=== PATIENT | male | born 1945 | race Caucasian/White ===

== ENCOUNTER 2017-03-18 10:14 | Inpatient (IN) ==
[2017-03-18 10:45] LABS: MANUAL DIFF NEEDED? NO
[2017-03-18 10:50] LABS: BE 3.3 mmoll (-3.0-3.0); BLOOD TYPE ARTERIAL; DRAW SITE R RADIAL; O2(CT) 18.7 mL/dL (15.0-23.0); PCO2(98.6) 37 mmHg (35-45); PO2(98.6) 51 mmHg (60-100); SAMPLE BLOOD; SAO2 91.9 % (95.0-100.0); THB 14.9 g/dL (11.5-17.4); pH(98.6) 7.47 (7.35-7.45)
[2017-03-18 10:51] LABS: BASO% 0.2 % (0.0-0.8); EOS# 0.07 X1000 (0.0-0.7); EOS% 0.6 % (0.0-10.0); HEMATOCRIT 42.5 % (42.0-52.0); HEMOGLOBIN 14.2 g/dL (14.0-18.0); IMM GRAN# 0.03 X1000 (0.0-0.04); IMM GRAN% 0.2 % (0.0-0.5); LYMPH# 0.94 X1000 (1.2-3.4); LYMPH% 7.4 % (20.5-51.1); MCH 30.5 PG (27-31); MCHC 33.4 g/dL (33-37); MCV 91.2 FL (81-99); MONO# 1.39 X1000 (0.11-0.59); MPV 10.1 FL (7.4-10.4); NEUT% 80.6 % (42.2-75.2); PLT 265 X1000 (130-400); RBC 4.66 XMIL (4.7-6.1)
[2017-03-18] MEDS ORDERED: NS 1,000 ML IV ONE (10:56)
[2017-03-18] MEDS ORDERED: TYLENOL PO ONE (10:56)
[2017-03-18 11:00] LABS: ALLEN TEST YES; MODALITY ROOM AIR
[2017-03-18 11:07] LABS: AGAP 15; ALBUMIN 3.6 g/dL (3.5-5.0); ALKALINE PHOSPHATASE 94 U/L (32-122); BUN 12 mg/dL (8-22); CALCIUM 9.4 mg/dL (8.8-10.2); CHLORIDE 94 mmol/L (98-107); COSMO 269; GOT 51 U/L (10-34); GPT 50 U/L (10-44); POTASSIUM 4.1 mmol/L (3.5-5.1); SODIUM 131 mmol/L (136-145); TCO2 22 mmol/L (25-35); TOTAL PROTEIN 7.1 g/dL (6.3-8.3)
[2017-03-18] MEDS ORDERED: ZITHROMAX 500 MG/NS 500 MG/250 ML IVPB IV ONE (11:12)
[2017-03-18] MEDS ORDERED: ROCEPHIN 1 GM/NS 1 GM/50 ML IVPB IV ONE (11:12)
[2017-03-18] MEDS ORDERED: DUONEB (A & A) INH ONE (11:14)
--- NOTE | 2017-03-18 11:18 | PROVIDER DOCUMENTATION ---
HPI-General Adult - General Chief Complaint: Cough Stated Complaint: CONGESTION/CHEST PAIN Time Seen by Provider: 03/18/17 10:55 Source: patient Allergies/Adverse Reactions: Patient Allergies Allergy/AdvReac Type Severity Reaction Status Date / Time No Known Allergies Allergy Verified 02/25/17 20:11 Home Medications: Home Medication List Medication Instructions Recorded Confirmed Last Taken Type Diltiazem [Cardizem] 60 mg PO BID 02/06/14 02/25/17 02/05/14 History Metoprolol [Lopressor] 50 mg PO DAILY 02/06/14 02/25/17 02/06/14 History Tamsulosin HCl [Flomax] 0.4 mg PO DAILY 02/06/14 02/25/17 02/05/14 History Butalb/Acetaminophen/Caffeine 1 each PO Q8-12H PRN PRN #20 02/25/17 Unknown Rx [Fioricet 50-300-40 mg Capsule] capsule Finasteride 5 mg PO DAILY 02/25/17 02/25/17 Unknown History Umeclidinium/Vilanterol [Anoro 1 puff INH RTDAILY 02/25/17 02/25/17 Unknown History Ellipta 62.5-25 Mcg INH] - History of Present Illness -Gen Adult Nature of Presenting Problems: Pt. is 71 yom that presents with c/o cough for two weeks. Pt. reports that over the last couple days he has developed a fever. Pt. thinks he has bronchitis. Pt. states he just can't seem to catch his breath. Location of Pain/Injury: reports: none. denies: head, face, mouth, neck, chest , upper extremity, hand(s), abdomen, back, pelvis, genitalia, lower extremity, feet, upper body, lower body, generalized Pain Radiation: reports: no radiation Quality of Pain: reports: none. denies: aching, burning, cramping, dull, fullness, indigestion, pressure, sharp, stabbing, tearing, throbbing, tightness Severity: denies: mild, moderate, severe Onset/Duration: reports: gradual, other (Two weeks) Timing: reports: still present, constant, changing over time, getting worse. denies: improving, gone now, resolved prior to arrival, intermittent Context/Activities at Onset: reports: none. denies: recent emotional stress, recent physical stress, recent trauma history, possible bad food, cold exposure , out of country travel Modifying Factors: improves with: nothing Associated Symptoms: reports: cough, fever/chills, malaise, shortness of breath , weakness. denies: anxiety, arm pain, back/neck pain, chest pain, constipation , diaphoresis, diarrhea, dizziness, EENT symptoms, fatigue, genitourinary problems, headaches, heartburn, joint pain, loss of appetite, muscle aches, sinus congestion/drainage, nausea, rash, seizure, sensory/motor loss, pain with inspiration, swelling/mass in abdomen, syncope, vomiting, trouble walking Similar Symptoms Previously?: Yes Recently seen or treated by another doctor?: No Review of Systems - Adult - REVIEW OF SYSTEMS - ADULT Constitutional: reports: see HPI, fever. denies: chills, fatique Eyes: reports: see HPI. denies: discharge, decreased vision, double vision Ears, Nose, Mouth & Throat: reports: see HPI. denies: ear pain, hearing loss, sinus problem, nose pain, mouth/dental pain, throat pain, throat swelling Cardiovascular: reports: see HPI. denies: irregular heart rate, palpitations, syncope Respiratory: reports: see HPI, cough, dyspnea on exertion, shortness of breath. denies: hemoptysis, pleurisy, wheezing Gastrointestinal: reports: see HPI, abdominal pain. denies: diarrhea, nausea, vomiting Genitourinary: reports: see HPI. denies: dysuria, hematuria, incontinence, urgency Musculoskeletal: reports: see HPI. denies: back pain, joint pain, muscle aches , neck pain Integumentary: reports: see HPI. denies: hives, itching, rash, skin thickening Neurological: reports: see HPI. denies: ataxia, headache/migraines, numbness, seizure, tremors Psychiatric: reports: see HPI. denies: anxiety, depression, emotional problems , insomnia, panic attacks, suicidal thoughts Past History - Adult - PAST MEDICAL HISTORY-ADULT Review of Records: reports: Old Records Reviewed, Nursing Assessment Review, Medications Reviewed, Social history reviewed & non-contributory. Major Childhood Illnesses: reports: denies history Cardiovascular: reports: denies history Respiratory: reports: COPD Gastrointestinal: reports: denies history Obstetrical/Gynecological: reports: denies history Genitourinary: reports: denies history Musculoskeletal: reports: denies history Neurological: reports: denies history Psychiatric: reports: denies history Endocrine/Immune: reports: denies history Other Conditions: reports: denies history - IMMUNIZATION STATUS Childhood Immunizations: See Nurse Assessment Flu Vaccine: See Nurse Assessment - FAMILY HISTORY Family History: reviewed, not pertinent - SOCIAL HISTORY Smoking: quit greater than 1 year Physical Exam-General - PHYSICAL EXAM-ADULT Initial Vital Signs Reviewed: Yes - CONSTITUTIONAL General Appearance: alert, moderate distress. negative: obese, anxious, lethargic, slow to respond, obtunded, combative - EYES Eyes: PERRL/EOMI, pink conjunctivae. negative: conjuctival exudate, scleral icterus, subconjunctival hemorrhage - HEAD, EARS, NOSE, MOUTH & THROAT HENMT: normocephalic/atraumatic, moist mucous membranes. negative: angioedema, frontal tenderness, maxillary tenderness - NECK Neck: non-tender, full range of motion, supple, normal inspection. negative: lymphadenopathy, trachial deviation, thyromegaly - RESPIRATORY Respiratory: decreased breath sounds, rhonchi (bilaterally), increased rate. negative: crackles, rales, stridor, wheezing, pain on inspiration - CARDIOVASCULAR Cardiovascular: regular rate, rhythm, no edema, no JVD, no murmur, tachycardia. negative: extra beats, friction rub, irregularly irregular - GASTROINTESTINAL (ABDOMEN) Abdominal Exam: normal bowel sounds, non tender, soft. negative: distended, guarding, rigid, rebound, tenderness, hernia, mass - LYMPHATIC Lymphatic: no adenopathy. negative: axilla node tender, cervical node tenderness - MUSCULOSKELETAL Back Exam: normal inspection, no CVA tenderness, no vertebral tenderness. negative: ecchymosis, swelling, vertebral tenderness Extremity: normal range of motion, non-tender, normal gait, normal inspection. negative: deformity, erythema, inflammation, swelling, tenderness Peripheral Pulses: radial (R): 2+, radial (L): 2+ - SKIN Integumentary: normal turgor, warm/dry, pallor. negative: cyanosis, diaphoresis , ecchymosis, erythema, jaundice, mottled, petechiae, purpura, rash, swelling, tenderness - NEUROLOGIC Neurologic: grossly normal, no motor/sensory deficits. negative: aphasia, facial droop, focal weakness, motor weakness, sensory deficit - PSYCHIATRIC Psych/Mental Status: normal mood/affect, normal thought content, normal thought process, oriented x 3. negative: anxious, paranoid, tearful Progress - PLAN OF CARE/RESULTS Progress/Plan/Lab Results: Vital Signs - 8 hr 03/18/17 10:17 Temperature 100.4 F H Pulse Rate 115 H Respiratory Rate 28 H Blood Pressure 136/74 O2 Sat by Pulse Oximetry 91 L Laboratory Results - last 24 hr 03/18/17 03/18/17 03/18/17 10:29 10:29 10:29 WBC 12.66 H RBC 4.66 L Hgb 14.2 Hct 42.5 MCV 91.2 MCH 30.5 MCHC 33.4 RDW Std Deviation 12.4 Plt Count 265 MPV 10.1 Immature Gran % (Auto) 0.2 Neut % (Auto) 80.6 H Lymph % (Auto) 7.4 L [place] % (Auto) 11.0 H Eos % (Auto) 0.6 Baso % (Auto) 0.2 Immature Gran # (Auto) 0.03 Neut # (Auto) 10.21 H Lymph # (Auto) 0.94 L [place] # (Auto) 1.39 H Eos # (Auto) 0.07 Baso # (Auto) 0.02 Specimen Type Sample Site pH pCO2 pO2 HCO3 Base Excess Oxyhemoglobin ABG O2 Sat (Calculated) ABG O2 Saturation ABG Carboxyhemoglobin ABG Methemoglobin Marito Test A-a O2 Difference Total Hemoglobin Lactate Blood Gas Modality FiO2 % Sodium 131 L Potassium 4.1 Chloride 94 L Carbon Dioxide 22 L Anion Gap 15 BUN 12 Creatinine 0.7 Estimated GFR/1.73 m2 > 60 BUN/Creatinine Ratio 17 Glucose 213 H Calculated Osmolality 269 Calcium 9.4 Total Bilirubin 0.50 AST 51 H ALT 50 H Alkaline Phosphatase 94 Total Protein 7.1 Albumin 3.6 Globulin 4.0 Albumin/Globulin Ratio 1.0 Plasma Lactate 1.5 03/18/17 10:30 WBC RBC Hgb Hct MCV MCH MCHC RDW Std Deviation Plt Count MPV Immature Gran % (Auto) Neut % (Auto) Lymph % (Auto) [place] % (Auto) Eos % (Auto) Baso % (Auto) Immature Gran # (Auto) Neut # (Auto) Lymph # (Auto) [place] # (Auto) Eos # (Auto) Baso # (Auto) Specimen Type ARTERIAL Sample Site R RADIAL pH 7.47 H pCO2 37 pO2 51 L HCO3 27.3 H Base Excess 3.3 H Oxyhemoglobin 89.3 L* ABG O2 Sat (Calculated) 18.7 ABG O2 Saturation 91.9 L ABG Carboxyhemoglobin 1.90 ABG Methemoglobin 1.0 Marito Test YES A-a O2 Difference 52.0 Total Hemoglobin 14.9 Lactate 1.00 Blood Gas Modality ROOM AIR FiO2 % 21.0 Sodium Potassium Chloride Carbon Dioxide Anion Gap BUN Creatinine Estimated GFR/1.73 m2 BUN/Creatinine Ratio Glucose Calculated Osmolality Calcium Total Bilirubin AST ALT Alkaline Phosphatase Total Protein Albumin Globulin Albumin/Globulin Ratio Plasma Lactate Orders Category Date Time Status Saline Loc NOW Care 03/18/17 10:21 Active CHEST-2 VIEWS [RAD] Stat Exams 03/18/17 10:21 Ordered ABG [RESP] Routine Lab 03/18/17 10:30 Completed BLOOD CULTURE [BLDCUL] Stat Lab 03/18/17 10:21 Ordered CBC WITH DIFF [HEME] Stat Lab 03/18/17 10:29 Completed COMPREHENSIVE METABOLIC PANEL [CHEM] Stat Lab 03/18/17 10:29 Completed LACTATE, PLASMA [CHEM] Stat Lab 03/18/17 10:[address] [URINALYSIS] Stat Lab 03/18/17 10:55 Ordered 0.9% Sodium Chloride Inj [Ns] 1,000 ml Med 03/18/17 10:56 Active IV 999 mls/hr Acetaminophen [Tylenol] Med 03/18/17 10:56 Discontinued 1,000 mg PO NOW ONE Azithromycin 500 mg/Ns [Zithromax 500 mg/Ns] Med 03/18/17 11:12 Ordered 500 mg in 250 ml IV NOW Rocephin 1 gm/Ns IV Now Med 03/18/17 11:12 Ordered CefTRIAXONE 1 GM/NS [Rocephin 1 gm/Ns] 1 gm in 50 ml IV NOW Pulse Oximetry Stat Oth 03/18/17 10:21 Active Discussed results and plan of care with patient. Patient agrees with plan and verbalizes understanding. Result Diagrams: 03/18/17 10:29 03/18/17 10:29 - XRAY 1 XRAY Study: Chest XRAY Interpretation: Pneumonia (Chris) - CONSULTS/PCP/HOSPITALIST Notification #1 *Consult/PCP/Hospitalist*: Dr. Perez Time Discussed: 11:14 Reason/Comments: Admission Consult Disposition: Admit Departure - Departure Time of Disposition Decision: 11:13 DIAGNOSIS: Hypoxia Pneumonia Qualifiers: Pneumonia type: due to unspecified organism Laterality: left Lung location: unspecified part of lung Qualified Code(s): J18.9 - Pneumonia, unspecified organism Disposition: ADMITTED INPATIENT 09 Certified Medical Emergency: Emergent Condition: Stable Referrals and Follow-Ups: Nickolas Perez MD [Primary Care Provider] - - Critical Care Note This patient required my direct personal management.: No Attestation - Physician/ KJ Attestation Patient care was provided by Advanced Practice Provider:: Yes Advanced Practice Provider:: Jose Raul Devi Advanced Practice Provider documentation review:: The Mid-level provider documentation, treatment plan and medical decision making was reviewed by the physician who agrees with all treatment and medical decision making by the MLP.
--- NOTE | 2017-03-18 12:55 | Diag Imaging Result Document ---
PROCEDURE NAME: CHEST-2 VIEWS - 03/18/2017 CHEST, 2 VIEWS: COMPARISON: 02/25/2017. FINDINGS: Heart size is normal. There are COPD changes. There has been development of ill- defined infiltrate at the right lower lobe, suspicious for bronchopneumonia. There are no other acute changes identified. There is thoracic spondylosis noted. IMPRESSION: COPD. Ill-defined right lower lobe infiltrate suspicious for bronchopneumonia.
[2017-03-18] MEDS ORDERED: FIORICET PO PRN (13:41)
[2017-03-18 14:39] LABS: BILIRUBIN URINE NEGATIVE (NEGATIVE); BLOOD URINE NEGATIVE (NEGATIVE); CLARITY CLEAR (CLEAR); COLOR AMBER; LEUKOCYTES URINE TRACE (NEGATIVE); NITRITE URINE NEGATIVE (NEGATIVE); PROTEIN URINE TRACE mg/dL (NEGATIVE); UROBILINOGEN URINE 1+(1 mg/dL)
[2017-03-18 14:42] LABS: URINE CULTURE PL NEEDED? YES; URINE EPITHELIAL CELLS <10 /HPF (<10); URINE WBC <10 /HPF (<10)
[2017-03-18 14:43] LABS: URINE CAST NONE SEEN /LPF; URINE CRYSTAL NONE SEEN /HPF; URINE SOURCE CLEAN CATCH
[2017-03-18] MEDS: DUONEB (A & A) INH SCH ×2 (19:53→23:07)
[2017-03-18] MEDS: FLOMAX PO SCH (20:47)
[2017-03-18] MEDS: CARDIZEM PO SCH (20:47)
[2017-03-18] MEDS: TUSSIONEX LIQUID PO PRN (20:48)
[2017-03-19] MEDS: TYLENOL PO PRN ×3 (03:38→23:00)
[2017-03-19] MEDS: DUONEB (A & A) INH SCH ×6 (03:48→22:54)
[2017-03-19] MEDS: ANORO ELLIPTA 62.5-25 MCG INH INH SCH (08:08)
[2017-03-19 08:23] LABS: MANUAL DIFF NEEDED? NO
[2017-03-19 08:26] LABS: BASO% 0.4 % (0.0-0.8); EOS# 0.17 X1000 (0.0-0.7); EOS% 1.6 % (0.0-10.0); HEMATOCRIT 40.6 % (42.0-52.0); HEMOGLOBIN 13.6 g/dL (14.0-18.0); IMM GRAN# 0.02 X1000 (0.0-0.04); IMM GRAN% 0.2 % (0.0-0.5); LYMPH# 2.14 X1000 (1.2-3.4); LYMPH% 20.1 % (20.5-51.1); MCHC 33.5 g/dL (33-37); MCV 92.5 FL (81-99); MONO# 0.95 X1000 (0.11-0.59); MONO% 8.9 % (1.7-9.3); MPV 9.4 FL (7.4-10.4); NEUT% 68.8 % (42.2-75.2); PLT 278 X1000 (130-400); RBC 4.39 XMIL (4.7-6.1)
[2017-03-19 08:54] LABS: AGAP 13; ALBUMIN 3.5 g/dL (3.5-5.0); ALKALINE PHOSPHATASE 88 U/L (32-122); BUN 9 mg/dL (8-22); CHLORIDE 93 mmol/L (98-107); COSMO 267; GOT 32 U/L (10-34); GPT 41 U/L (10-44); POTASSIUM 3.6 mmol/L (3.5-5.1); SODIUM 131 mmol/L (136-145); TCO2 25 mmol/L (25-35); TOTAL PROTEIN 6.8 g/dL (6.3-8.3)
[2017-03-19] MEDS: CARDIZEM PO SCH ×2 (10:13→20:27)
[2017-03-19] MEDS: PROSCAR PO SCH (10:14)
[2017-03-19] MEDS: LOPRESSOR PO SCH (10:14)
[2017-03-19] MEDS: TUSSIONEX LIQUID PO PRN ×2 (11:30→23:00)
[2017-03-19] MEDS ORDERED: HALL'S COUGH LOZENGE MT PRN (12:35)
[2017-03-19] MEDS: ROCEPHIN 1 GM/NS 1 GM/50 ML IVPB IV SCH (15:23)
[2017-03-19] MEDS: ZITHROMAX 500 MG/NS 500 MG/250 ML IVPB IV SCH (16:06)
[2017-03-19] MEDS: FLOMAX PO SCH (20:27)
[2017-03-20] MEDS: DUONEB (A & A) INH SCH ×7 (04:12→23:06)
[2017-03-20] MEDS: ANORO ELLIPTA 62.5-25 MCG INH INH SCH (08:00)
[2017-03-20] MEDS: PROSCAR PO SCH (08:52)
[2017-03-20] MEDS: LOPRESSOR PO SCH (08:52)
[2017-03-20] MEDS: CARDIZEM CD PO SCH ×2 (08:52→20:50)
--- NOTE | 2017-03-20 10:11 | Diag Imaging Result Document ---
PROCEDURE NAME: CHEST-2 VIEWS - 03/20/2017 FRONTAL AND LATERAL CHEST, TWO VIEWS: COMPARISON: 03/18/2017. FINDINGS: The lungs are hyperexpanded. There is an increased AP diameter to the chest. The pulmonary vessels are small. Mild worsening in the basilar infiltrates. No pleural effusions. IMPRESSION: 1. Small basilar infiltrates. 2. Emphysema.
[2017-03-20] MEDS: ROCEPHIN 1 GM/NS 1 GM/50 ML IVPB IV SCH (15:20)
[2017-03-20] MEDS: TUSSIONEX LIQUID PO PRN (15:43)
[2017-03-20] MEDS: ZITHROMAX 500 MG/NS 500 MG/250 ML IVPB IV SCH (17:21)
[2017-03-20 18:14] LABS: BE 4.4 mmoll (-3.0-3.0); BLOOD TYPE ARTERIAL; DRAW SITE R RADIAL; METHB 0.9 % (0.0-1.5); O2(CT) 18.6 mL/dL (15.0-23.0); PCO2(98.6) 43 mmHg (35-45); PO2(98.6) 54 mmHg (60-100); SAMPLE BLOOD; SAO2 91.5 % (95.0-100.0); THB 14.8 g/dL (11.5-17.4); pH(98.6) 7.44 (7.35-7.45)
[2017-03-20 19:38] LABS: ALLEN TEST YES; MODALITY CANNULA
[2017-03-20] MEDS: FLOMAX PO SCH (20:50)
[2017-03-21] MEDS: DUONEB (A & A) INH SCH ×3 (03:50→11:16)
[2017-03-21] MEDS: ANORO ELLIPTA 62.5-25 MCG INH INH SCH (07:56)
[2017-03-21] MEDS: CARDIZEM CD PO SCH (09:36)
[2017-03-21] MEDS: LOPRESSOR PO SCH (09:36)
[2017-03-21] MEDS: PROSCAR PO SCH (09:36)
[2017-03-21 15:19] VITALS: BP 119/69
[2017-03-21] MEDS: ROCEPHIN 1 GM/NS 1 GM/50 ML IVPB IV SCH (15:47)
--- NOTE | 2017-04-06 01:05 | HISTORY AND PHYSICAL ---
HISTORY OF PRESENT ILLNESS: He presented to the emergency room on the day of his admission complaining of a cough that had been present for 2 weeks. Over the past couple of days he has developed a fever, and thinks he has bronchitis. He says he just does not seem able to catch up with his breath. In the ER, he denied chills, felt like he had a fever. He denied nasal symptoms. He denied any rapid and irregular heart beat. He was seen in the ER, where his temperature was 100.4 degrees, pulse was 115, respiratory rate was 28, blood pressure 136/74, O2 saturation was 91. His white count was 12,660. His hematocrit was 42.5. His platelet count was 265. He had a slight left shift, 80.6 neutrophils. His sodium was 131, potassium 4.1, chloride 94, CO2 22, anion gap 15, BUN 12, creatinine 0.7. Estimated GFR is greater than 60. BUN and creatinine ratio 17, glucose 213. Calcium was 9.4. Total bilirubin was 0.5. AST 51, ALT 50, alkaline phosphatase 94, total protein 7.1. Albumin 3.6, globulin 4. Lactate 1.5. Blood gases: pH 7.47. His pCO2 was 37, PO2 was 51. His O2 saturation calculated was 91.9, carboxyhemoglobin level was 1.90. Lactate was 1, FIO2 was 21%. He had a chest x-ray that they felt showed a pneumonia, and he was felt to be a candidate for admission. He was given a bolus of normal saline. He was given some Tylenol 1000 mg. He was given azithromycin 500 and Rocephin 1 g, and subsequently transferred upstairs to the unit. ALLERGIES: None. REVIEW OF SYSTEMS: General: He has a fever. Denies chills, fatigue, any significant weight gain, weight loss. Eyes: No change in vision. He had a discharge. He had some double vision. Ears: No otitis. No hearing loss. Sinus: No discharge or drainage. Oropharynx: Negative. Throat: Negative. Cardiovascular: He denies any irregular heart rate, palpitations, syncope, or chest pain. Pulmonary: He has a cough, dyspnea on exertion, shortness of breath. He denies hemoptysis, pleurisy, and wheezing. Gastrointestinal: He has some vague abdominal pain. Denies diarrhea, nausea, and vomiting. Genitourinary: Denies dysuria, hematuria, incontinence, or urgency. Musculoskeletal: Denies back pain, joint pain, muscle aches, and neck pain. Skin: No hives, itches, rashes, skin thickening, or lesions. Neurological: He was not ataxic. No headaches. No unilateral weakness or numbness. No seizure disorder. No headaches. Psychiatric: Negative. PAST MEDICAL HISTORY: He has a history of underlying COPD from a long-standing history of smoking. He has a history of BPH, takes finasteride and tamsulosin. He has COPD, for which he takes an Anoro Ellipta. He takes butalbital for headaches, and diltiazem and metoprolol. PHYSICAL EXAMINATION ON ADMISSION: Vital Signs: As previously noted. General: He was alert and oriented, slight distress. He was slightly overweight. Otherwise, negative. Eyes: PERRLA. EOMs intact. Sclerae anicteric. HENT: He denies any change in his nares or oropharynx. Neck: Supple. Bounding carotids, without thyromegaly or lymphadenopathy. Chest: Had bilateral diminished breath sounds. Rhonchi bilaterally. No consolidative findings. Cardiovascular: Regular rhythm and rate, S1-S2 were normal. No murmurs, gallops, clicks, rubs, or edema. He was slightly tachycardic. Abdomen: Somewhat distended. No hepatosplenomegaly. No CVA tenderness. No lymphadenopathy. Back: Normal to inspection. No CVA tenderness or vertebral neck tenderness. Skin: Negative. Neurological: Focal deficits were not appreciated. Cranial nerves were intact. Psychiatric: Negative. He was oriented x3. ASSESSMENT AND PLAN: He was admitted with pneumonia and hypoxia, a history of hypertension and benign prostatic hypertrophy. cc: Nickolas Perez MD
--- NOTE | 2017-04-06 07:34 | DISCHARGE SUMMARY ---
ADMISSION DATE: 03/18/2017 DISCHARGE DATE: 03/21/2017 HISTORY: This is an office patient of mine, who has BPH and COPD. He presented to the emergency room with a cough of approximately 2 weeks' duration and had recently been associated with a fever. He had 100.4 fever on presentation with 115 heart rate and respiratory rate of 28. He had labs drawn and blood gases. Blood gases revealed respiratory failure with a PO2 of 51. Chest x- ray was suggestive of a pneumonia per the ER physician. He was given some Rocephin and Zithromax and admitted to the hospital for further therapy including pulmonary toilet therapy. DATABASE: Here, microbiology, urine, sputum and blood cultures were negative. IMAGING REPORTS: Chest x-ray from 03/18/2017, showed COPD and an ill-defined infiltrate at the right lower lobe suspicious for bronchopneumonia. There are no other acute changes identified at that time. His subsequent chest x-ray on 03/20/2017 shows the lungs were hyperexpanded. He had increased AP diameter. Small pulmonary vessels. Mild worsening of the basilar infiltrate. No pleural effusions. Emphysema. LABORATORY: White count was 1266, with a slight left shift of 80.6. Lymphocytes were 7.4, monos were 11. On 2 days later, white count was 10,650, hematocrit was 40.6, platelet count was 278,000. Initial blood gas pH was 747, pCO2 37, PO2 51. His O2 saturation was 89%. He had an FiO2 of 21. His lactate level was 1. We followed up gases in 2 days which showed a pH 7.4, pCO2 of 43, PO2 of 54. Oxyhemoglobin was 89.4. These 2 were on 21%. Chemistry: Sodium was 133, potassium 3.6, chloride 93, CO2 was 25, BUN 9 creatinine 0.6, GFR greater than 60. Liver functions were all negative. Blood sugars were negative. He had a little bump in some enzymes while he was here at the hospital. HOSPITAL COURSE: During hospital stay, he had no subsequent fever. As stated earlier, his numbers were good with the blood gases being 54, qualifying him for some home oxygen therapy to support his emphysematous changes. His treatment was with continuation of the Rocephin and Zithromax that he was getting in the ER. With pulmonary toilet, he kept coughing. He seemed to improve. His chest x-ray has yet to resolve. We finished out on Rocephin and Zithromax and he was discharged home as a ventilatory failure, pneumonitis, COPD, hypertension, BPH. cc: Nickolas Perez MD
== END 2017-03-21 16:36 | disposition home or self-care (01) ==
LOC: P.ED 10:14 → P.MEDSURG 11:58
PROVIDERS: ADMIT Internal Medicine; ATTEND Internal Medicine

== ENCOUNTER 2019-07-24 07:11 | Observation (INO) ==
[2019-07-16 10:15] LABS: HEMATOCRIT 42.7 % (42.0-52.0); HEMOGLOBIN 14.5 g/dL (14.0-18.0); MCH 31.7 PG (27-31); MCV 93.2 FL (81-99); MPV 9.8 FL (7.4-10.4); RBC 4.58 XMIL (4.7-6.1); RDW 12.4 % (11.5-14.5); WBC 7.91 X1000 (4.8-10.8)
[2019-07-16 10:56] LABS: AGAP 13; BUN 10 mg/dL (8-22); CALCIUM 9.6 mg/dL (8.8-10.2); CHLORIDE 101 mmol/L (98-107); COSMO 281; CREATININE 0.8 mg/dL (0.7-1.2); ESTIMATED GFR > 60; GLUCOSE 179 mg/dL (70-104); POTASSIUM 4.1 mmol/L (3.5-5.1); SODIUM 139 mmol/L (136-145); TCO2 25 mmol/L (25-35)
[2019-07-24] MEDS ORDERED: LR 1,000 ML ONE (07:39)
[2019-07-24] MEDS ORDERED: REGLAN ONE (07:39)
[2019-07-24] MEDS ORDERED: KEFZOL 1 GM/D5W 2 GM/100 ML IVPB ONE (07:39)
[2019-07-24] MEDS ORDERED: PEPCID ONE (07:39)
[2019-07-24] MEDS ORDERED: DIPRIVAN 1% ONE (08:50)
[2019-07-24] MEDS ORDERED: XYLOCAINE-MPF 2% ONE (08:51)
[2019-07-24] MEDS ORDERED: VERSED ONE (09:03)
[2019-07-24] MEDS ORDERED: FENTANYL ONE (09:05)
[2019-07-24] MEDS ORDERED: GENTAMICIN 80 MG/NS 80 MG/50 ML IVPB ONE (09:24)
[2019-07-24] MEDS ORDERED: B & O 15A SUPP ONE (09:24)
[2019-07-24] MEDS ORDERED: NS 1,000 ML ONE (11:18)
[2019-07-24] MEDS ORDERED: NORCO-7.5 PO PRN (12:15)
[2019-07-24] MEDS ORDERED: DITROPAN PO PRN (12:15)
[2019-07-24] MEDS ORDERED: BENADRYL LIQUID PO PRN (12:15)
[2019-07-24] MEDS ORDERED: LABETALOL IV PRN (12:15)
[2019-07-24] MEDS ORDERED: B & O 15A SUPP PR PRN (12:15)
[2019-07-24] MEDS ORDERED: PHENERGAN IV PRN (12:15)
[2019-07-24] MEDS ORDERED: NORCO-5 PO PRN (12:15)
[2019-07-24] MEDS ORDERED: SODIUM CHLORIDE 0.9% INJ PRN (12:15)
[2019-07-24] MEDS ORDERED: NORCO-10 PO PRN (12:15)
[2019-07-24] MEDS: NS 1,000 ML IV SCH ×2 (13:00→22:21)
--- NOTE | 2019-07-24 15:07 | OPERATIVE NOTE ---
PROCEDURE DATE: 07/24/2019 SURGEON: Gilles Patterson MD PREOPERATIVE DIAGNOSES: 1. Enlarged prostate. 2. Urinary retention. 3. History of bladder stones. POSTOPERATIVE DIAGNOSES: 1. Enlarged prostate. 2. Urinary retention. 3. History of bladder stones. PROCEDURE PERFORMED: 1. Cystoscopic exam. 2. Transurethral resection of the prostate. 3. Placed suprapubic tube. ANESTHESIA: Spinal with monitored anesthesia care. FINDINGS: Cystoscopic exam: Urethra - Greater than 25-[place]er without stricture. Prostate - Hypertrophy of the lateral lobes, marked hypertrophy of the left lateral lobe. Elevated bladder neck length approximately 4.5 cm. Bladder - Normal ureteral orifices. Grade 3 trabeculations. Small diverticula. Mucosal changes consistent with indwelling Orosco catheter. Rectal exam reveals a prostate of about 70 g, firm. INDICATION FOR PROCEDURE: This 74-year-old male has a history of urinary retention and bladder stones. He has had an indwelling Orosco catheter for several months and decided to have transurethral resection of the prostate and placement of a suprapubic tube in an attempt to get the urethral Orosco catheter out. DESCRIPTION OF PROCEDURE: After informed consent was obtained from the patient and family and him receiving IV antibiotics, he was taken to the main OR cystoscopy room and placed in the right lateral decubitus position. Spinal anesthesia was achieved. He was then placed in the low lithotomy position. IV sedation was achieved. He was then placed in a low lithotomy position and prepped and draped in the usual sterile fashion for lower abdominal surgery and cystoscopic exam. A 21-[place]er sheath and cystoscope was passed through the patient's urethra, prostate, and bladder with findings noted above. The cystoscope was removed and the 25.4 continuous flow resectoscope and sheath was placed. The thick gyrus loop electrode was placed. Both ureteral orifices were visualized. The verumontanum was visualized. The procedure was started by taking down the very large left lateral lobe. After this was taken down, the procedure was performed by the starting at the 6 o'clock position and going to the level of bladder neck, level of the verumontanum, proceeding in a clockwise direction up to the 10 o'clock position. Tissue from the remaining portion of the left lateral lobe was taken down to the level of bladder neck to the level of the verumontanum from the 6 o'clock to the 2 o'clock position. Tissue from the anterior prostatic urethra was removed between the 2 o'clock and 10 o'clock positions from the level of bladder neck to the level of the verumontanum. Hemostasis was achieved with electrocautery. The chips were removed from the bladder with the Claribel evacuators. At completion, both ureteral orifices were intact. The verumontanum was intact. The bladder was left distended. A stab incision was made approximately 2 fingerbreadths above the midline, just to the right of his colectomy scar. A the Génesis suprapubic tube introducer was pushed through the stab incision and into the bladder under direct vision. A 16-[place]er Orosco catheter was passed through the sheath and into the bladder and 10 mL sterile water were placed in the Orosco's balloon. The sheath was removed. The Orosco was plugged. The suprapubic tube was sutured to the skin with 0 silk. A 24-[place]er 3-way Orosco was passed through the patient's urethra and into the bladder and 35 mL of sterile water were placed in the Orosco's balloon. The Orosco was placed to gravity drain. The efflux was light pink. Continuous bladder irrigation was started and it cleared. He tolerated the procedure well. Estimated blood loss 150 mL. He was taken to the recovery room in good condition. cc: Gilles Patterson MD
[2019-07-24] MEDS: KEFZOL 1 GM/D5W 1 GM/50 ML IVPB IV SCH ×2 (15:17→22:22)
[2019-07-24] MEDS ORDERED: FLOMAX PO SCH (21:00)
[2019-07-24] MEDS: PEPCID PO SCH (22:21)
[2019-07-24] MEDS: COLACE PO SCH (22:21)
[2019-07-25 07:07] LABS: HEMATOCRIT 40.6 % (42.0-52.0); HEMOGLOBIN 13.5 g/dL (14.0-18.0); MCH 31.7 PG (27-31); MCV 95.3 FL (81-99); RBC 4.26 XMIL (4.7-6.1); WBC 7.74 X1000 (4.8-10.8)
[2019-07-25 07:08] LABS: MCHC 33.3 g/dL (33-37); MPV 10.2 FL (7.4-10.4); RDW 12.4 % (11.5-14.5)
[2019-07-25 07:34] LABS: AGAP 8; BUN 13 mg/dL (8-22); CALCIUM 8.4 mg/dL (8.8-10.2); CHLORIDE 99 mmol/L (98-107); COSMO 272; CREATININE 0.8 mg/dL (0.7-1.2); ESTIMATED GFR > 60; GLUCOSE 139 mg/dL (70-104); SODIUM 135 mmol/L (136-145); TCO2 28 mmol/L (25-35)
[2019-07-25 07:41] VITALS: BP 132/63
[2019-07-25] MEDS: COLACE PO SCH (08:43)
[2019-07-25] MEDS: PEPCID PO SCH (08:43)
== END 2019-07-25 10:34 | disposition home or self-care (01) ==
LOC: 4N 07:11 → OR 07:11
PROVIDERS: ADMIT Urology; ATTEND Urology
PROC: UR.TURP (2019-07-24 09:05)